=== PATIENT | female | born 1950 | race Caucasian/White ===

== ENCOUNTER 2024-03-01 02:12 | Outpatient (CLI) | payer MEDICARE, SELFPAY | END 2024-03-01 02:13 | disposition home or self-care (01) | LOC: AMB 03-16 02:02 | PROVIDERS: Visit Provider Family Medicine | DX: S09.93XA Unspecified injury of face, initial encounter (principal); W10.9XXA Fall (on) (from) unspecified stairs and steps, initial encounter; Y92.008 Other place in unspecified non-institutional (private) residence as the place of occurrence of the external cause | CPT/HCPCS: A0425; A0427 ==